=== PATIENT | female | born 1950 | race Caucasian/White ===

== ENCOUNTER 2016-10-04 14:09 | Inpatient (IN) | payer OTHER ==
[~2016-10-04] VITALS: Ht 165.1 cm; Wt 88.8 kg
[2016-10-04] MEDS ORDERED: SODIUM CHLORIDE FLUSH 10ML SYR IVF ONE (15:00)
[2016-10-04] MEDS ORDERED: PLEASE ENTER ALLERGIES MC SCH ×2 (15:00)
[2016-10-04] MEDS ORDERED: SODIUM CHLORIDE 0.9% 1,000ML IVBOLUS ONE (15:00)
[2016-10-04] MEDS ORDERED: thyroid medication PO (15:08)
[2016-10-04] MEDS ORDERED: SITA25TA PO (15:08)
[2016-10-04] MEDS ORDERED: HYDR-3138 PO (15:08)
[2016-10-04] MEDS ORDERED: gliburide PO (15:08)
[2016-10-04] MEDS ORDERED: METF500T4 PO (15:08)
[2016-10-04 15:12] LABS: ASPARTATE AMINO TRANSFERASE 25 U/L (15-37); BLOOD UREA NITROGEN 18 mg/dL (7-18)
[2016-10-04 15:19] LABS: IS PT STATUS REG ER OR PRE ER? YES
[2016-10-04] MEDS ORDERED: ASPIRIN 81 MG TABLET CHEW ONE (15:59)
[2016-10-04] MEDS ORDERED: ASPIRIN 81 MG TABLET CHEW PO ONE (16:00)
[2016-10-04] MEDS ORDERED: OMNIPAQUE 350 MG/ML, 100ML BOTTLE ONE (17:00)
[2016-10-04] MEDS ORDERED: SODIUM CHLORIDE FLUSH 10ML SYR IVF PRN (18:30)
[2016-10-04] MEDS ORDERED: HYDROcodone/APAP 5/325 TABLET PO PRN (18:30)
[2016-10-04] MEDS ORDERED: NITROGLYCERIN 0.4 MG BOTTLE (25 TABS) SL PRN (19:00)
[2016-10-04 19:41] LABS: PATH.CAST-FLAG NOT PRESENT; SPERM-FLAG NOT PRESENT; SRC-FLAG NOT PRESENT; XTAL-FLAG NOT PRESENT; YLC-FLAG NOT PRESENT
[2016-10-04] MEDS ORDERED: MAGNESIUM SULFATE PMX 2GM/50ML 50 ML IV ONE (20:00)
[2016-10-04] MEDS ORDERED: AZITHROMYCIN 500 MG in SODIUM CHLORIDE 0.9% 250 ML IV ONE (20:00)
[2016-10-04 20:29] LABS: IS PT STATUS REG ER OR PRE ER? NO
[2016-10-04] MEDS: methylPREDNISolone SOD SUCC 40 MG/ML IVPush SCH (20:50)
[2016-10-04] MEDS: HEPARIN 5,000 UNITS/ML, 1ML SQ SCH (20:50)
[2016-10-04] MEDS: NICOTINE 14MG/24 HR PATCH.TD24 TD SCH (20:51)
[2016-10-04] MEDS: SODIUM CHLORIDE 0.9% 1,000 ML IV SCH ×6 (20:51→23:59)
[2016-10-04] MEDS: CEFTRIAXONE 2 GM in SODIUM CHLORIDE 0.9% 50 ML IV SCH (20:51)
[2016-10-04] MEDS: GUAIFENESIN 200 MG TABLET PO SCH (21:48)
[2016-10-04] MEDS: HYDROcodone/APAP 5/325 TABLET PO PRN (22:04)
[2016-10-04] MEDS: INSULIN ASPART 100 UNITS/ML, PEN SQ-INSULIN SCH (22:50)
[2016-10-04 22:53] VITALS: BP 116/69
[2016-10-04] MEDS ORDERED: ALBUTEROL/IPRATROPIUM 2.5MG/0.5MG, 3 ML NPPB PRN (23:00)
[2016-10-04] MEDS: TEMAZEPAM 15 MG CAPSULE PO PRN (23:20)
[2016-10-05 03:06] LABS: BLOOD UREA NITROGEN 18 mg/dL (7-18)
[2016-10-05 03:10] LABS: IS PT STATUS REG ER OR PRE ER? NO
[2016-10-05 03:39] VITALS: BP 128/70
[2016-10-05] MEDS: HEPARIN 5,000 UNITS/ML, 1ML SQ SCH ×3 (05:23→21:27)
[2016-10-05] MEDS: methylPREDNISolone SOD SUCC 40 MG/ML IVPush SCH ×3 (05:23→21:27)
[2016-10-05] MEDS: GUAIFENESIN 200 MG TABLET PO SCH ×4 (05:24→21:27)
[2016-10-05] MEDS: HYDROcodone/APAP 5/325 TABLET PO PRN ×4 (06:09→23:53)
[2016-10-05 06:38] VITALS: BP 122/72
[2016-10-05] MEDS: INSULIN ASPART 100 UNITS/ML, PEN SQ-INSULIN SCH ×4 (09:33→21:28)
[2016-10-05 09:41] VITALS: BP 117/68
[2016-10-05] MEDS ORDERED: MAGNESIUM SULFATE PMX 2GM/50ML 50 ML IV ONE (11:00)
[2016-10-05] MEDS: FLUTICASONE/VILANTEROL 100-25MCG/INH INH SCH (13:34)
[2016-10-05 14:14] VITALS: BP 120/68
[2016-10-05] MEDS: SODIUM CHLORIDE 0.9% 1,000 ML IV SCH (17:25)
[2016-10-05] MEDS: NICOTINE 14MG/24 HR PATCH.TD24 TD SCH (17:26)
[2016-10-05 18:42] VITALS: BP 122/63
[2016-10-05] MEDS: CEFTRIAXONE 2 GM in SODIUM CHLORIDE 0.9% 50 ML IV SCH (21:27)
[2016-10-05] MEDS: TEMAZEPAM 15 MG CAPSULE PO PRN (21:29)
[2016-10-05] MEDS ORDERED: SODIUM CHLORIDE NASAL SPRAY 45ML BOTTLE NAS PRN (21:30)
[2016-10-05] MEDS: CETIRIZINE 10 MG TABLET PO SCH (23:53)
[2016-10-06 01:07] VITALS: BP 133/74
[2016-10-06] MEDS: methylPREDNISolone SOD SUCC 40 MG/ML IVPush SCH (05:54)
[2016-10-06] MEDS: HEPARIN 5,000 UNITS/ML, 1ML SQ SCH (05:54)
[2016-10-06] MEDS: GUAIFENESIN 200 MG TABLET PO SCH ×2 (05:54→13:09)
[2016-10-06] MEDS: SODIUM CHLORIDE 0.9% 1,000 ML IV SCH ×2 (05:54→08:20)
[2016-10-06] MEDS: HYDROcodone/APAP 5/325 TABLET PO PRN ×2 (05:55→13:09)
[2016-10-06 06:42] LABS: BLOOD UREA NITROGEN 20 mg/dL (7-18)
[2016-10-06] MEDS: INSULIN ASPART 100 UNITS/ML, PEN SQ-INSULIN SCH ×2 (08:18→11:00)
[2016-10-06] MEDS: FLUTICASONE/VILANTEROL 100-25MCG/INH INH SCH (08:19)
[2016-10-06] MEDS: CETIRIZINE 10 MG TABLET PO SCH (08:20)
[2016-10-06 08:48] VITALS: BP 136/73
[2016-10-06] MEDS ORDERED: AZIT500T77 PO (12:06)
[2016-10-06] MEDS ORDERED: CEFD300C37 PO (12:06)
[2016-10-06] MEDS ORDERED: METH4TAB2 PO (12:06)
[2016-10-06 12:41] VITALS: BP 136/69
== END 2016-10-06 13:21 | disposition home or self-care (01) | DRG 871 ==
LOC: ED 16:59 → EDIP 18:26 → 5SO 20:01
PROVIDERS: ADMIT Internal Medicine
DX: A41.9 Sepsis, unspecified organism (principal); I21.4 Non-ST elevation (NSTEMI) myocardial infarction; J96.21 Acute and chronic respiratory failure with hypoxia; J18.9 Pneumonia, unspecified organism; N39.0 Urinary tract infection, site not specified; J44.1 Chronic obstructive pulmonary disease with (acute) exacerbation; J44.0 Chronic obstructive pulmonary disease with (acute) lower respiratory infection; G89.29 Other chronic pain; M54.5 Low back pain; E03.9 Hypothyroidism, unspecified; F17.210 Nicotine dependence, cigarettes, uncomplicated; K74.60 Unspecified cirrhosis of liver; E11.42 Type 2 diabetes mellitus with diabetic polyneuropathy; R91.1 Solitary pulmonary nodule; I10 Essential (primary) hypertension; D64.9 Anemia, unspecified; E11.65 Type 2 diabetes mellitus with hyperglycemia; I35.0 Nonrheumatic aortic (valve) stenosis; I27.2 Other secondary pulmonary hypertension; G62.9 Polyneuropathy, unspecified; Z90.49 Acquired absence of other specified parts of digestive tract; Z80.1 Family history of malignant neoplasm of trachea, bronchus and lung; Z82.3 Family history of stroke
CPT/HCPCS: 36415; 71010; 71275; 80048; 80053; 80061; 80162; 81001; 82962; 83036; 83605; 83735; 83880; 84100; 84145; 84439; 84443; 84484; 85025; 85610; 85730; 87040; 87077; 87086; 87186; 93005; 93306; 96360; J0456; J0696; J1644; J1815; Q9967; J2920; J3475; J7030; J7050